=== PATIENT | female | born 1965 | race African-American/Black ===

== ENCOUNTER 2018-03-15 12:12 | Day surgery (SDC) | payer OTHER ==
[2018-03-15 12:50] LABS: ADD MAN DIFF? NO
[2018-03-15 12:55] LABS: WHITE BLOOD COUNT 5.2 10^3/ul (4.8-10.8)
[2018-03-15 12:55] LABS: BASOPHILS % 0.4 % (0.0-2.0); EOSINOPHILS % 0.8 % (0.0-7.0); HEMATOCRIT 42.1 % (37.0-47.0); HEMOGLOBIN 13.8 g/dl (12.0-16.0); LYMPHOCYTES # 1.1 10^3/ul (0.8-2.9); LYMPHOCYTES % 21.1 % (15.0-51.0); MEAN CORPUSCULAR HEMOGLOBIN 33.3 pg (29.0-33.0); MEAN CORPUSCULAR HGB CONC 32.8 g/dl (32.0-37.0); MEAN CORPUSCULAR VOLUME 101.7 fl (82.0-101.0); MEAN PLATELET VOLUME 10.4 fl (7.4-10.4); MONOCYTE # 0.5 10^3/ul (0.3-0.9); MONOCYTES % 9.8 % (0.0-11.0); NEUTROPHIL # 3.5 10^3/ul (1.6-7.5); NEUTROPHILS % 67.7 % (39.0-77.0); PLATELET COUNT 161 10^3/UL (140-415); RED BLOOD COUNT 4.14 10^6/ul (4.20-5.40); RED CELL DISTRIBUTION WIDTH 13.1 % (11.5-14.5)
[2018-03-15 13:04] LABS: ADD UMIC NO; UR ASCORBIC ACID NEGATIVE (NEGATIVE); UR BACTERIA FEW /HPF (NONE SEEN); UR BILIRUBIN (Dip) NEGATIVE (NEGATIVE); UR BLOOD (Dip) NEGATIVE (NEGATIVE); UR CLARITY SLIGHTLY CLOUDY (CLEAR); UR COLOR YELLOW (YELLOW); UR GLUCOSE (Dip) NEGATIVE (NEGATIVE); UR KETONES (Dip) NEGATIVE (NEGATIVE); UR LEUKOCYTE ESTERASE (Dip) NEGATIVE Leu/ul (NEGATIVE); UR NITRITE (Dip) NEGATIVE (NEGATIVE); UR RBC 2 /HPF (0-5); UR SPECIFIC GRAVITY (Dip) 1.017 (1.003-1.030); UR SQUAMOUS EPITHELIAL CELL FEW /HPF (FEW); UR TOTAL PROTEIN (Dip) NEGATIVE (NEGATIVE); UR UROBILINOGEN (Dip) NEGATIVE (NEGATIVE); UR WBC 1 /HPF (0-5)
[2018-03-15 13:17] LABS: INR 0.92; PROTIME 12.4 Sec (11.9-14.9)
[2018-03-15 13:18] LABS: PARTIAL THROMBOPLASTIN TIME 31.6 Sec (25.0-35.0)
[2018-03-15 13:43] LABS: BLOOD UREA NITROGEN 10 mg/dl (7-20)
[2018-03-15 13:43] LABS: CREATININE 0.86 mg/dl (0.44-1.00)
[2018-03-15] MEDS ORDERED: FENTAnyl 50 MCG/ML VIAL (13:59)
[2018-03-15] MEDS ORDERED: IODIXANOL LOCM 50 ML BTL (13:59)
[2018-03-15] MEDS ORDERED: LIDOCAINE 1% (MDV) 20 ML INJ ×2 (13:59→14:32)
[2018-03-15] MEDS ORDERED: MIDAZOLAM 1 MG/ML 2 ML INJ (13:59)
== END 2018-03-15 17:33 | disposition home or self-care (01) ==
LOC: SDS 12:12
DX: I05.9 Rheumatic mitral valve disease, unspecified (principal); R94.31 Abnormal electrocardiogram [ECG] [EKG]; I20.9 Angina pectoris, unspecified
CPT/HCPCS: 81001; 81003; 82565; 84520; 85025; 85610; 85730; 93451